=== PATIENT | male | born 1985 | race Hispanic/Latino ===

== ENCOUNTER 2023-01-11 10:58 | Emergency (ER) | payer SELFPAY ==
--- NOTE | ~2023-01-11 | XR_ITS ---
XR ankle LT min 3V 01/11/2023 11:39 INDICATION: Left ankle pain PROCEDURE: 4 views left ankle COMPARISON: No prior studies for comparison. FINDINGS: Fracture, dislocation or subluxation is not identified. Ankle mortise intact. The soft tiss ues appear within normal limits. No foreign bodies are identified. There is a degenerative calcaneal enthesophyte at the plantar surface. IMPRESSION: 1: NO ACUTE BONE OR JOINT ABNORMALITY IDENTIFIED. Reviewed, dictated and finalized at location A.
--- NOTE | ~2023-01-11 | XR_ITS ---
XR knee LT min 4V 01/11/2023 11:39 Indication: Left knee pain Procedure: 4 views left knee Comparison: No prior studies for comparison. Findings: No fracture, subluxation or dislocation. No significant joint effusion. No foreign bodies. No joint space narrowing. Impression: 1: No acute bone or joint abnormality. Reviewed, dictated and finalized at location A. Impression: 1: No acute bone or joint abnormality.
[2023-01-11 11:06] VITALS: BP 147/95; PULSE 74; RESP 18; TEMP 36.9; O2SAT 100
--- NOTE | 2023-01-11 11:25 | ED.LOWEXIN ---
HPI - Extremity Injury (Lower) General Chief Complaint: Extremity Injury, Lower Stated Complaint: left leg pain Time Seen by Provider: 01/11/23 11:06 History of Present Illness HPI Narrative: 37-year-old male reports for evaluation of his left knee and ankle after he fell while playing with his children yesterday. Patient reports with a family member who aids in translation and history. He was playing with the children, slipped on a wet floor, causing his left hip to abduct. He reports he inverted his left ankle, hit the medial aspect of his knee on the ground, and had valgus stress to L knee. Pt reports pain since, worsening with ambulation. He is able to ambulate with a limp. Denies hip pain, pain to tib/tib, foot pain, back pain, paresthesias, lower extremity weakness. Denies hitting his head or LOC. Related Data Allergies Allergy/AdvReac Type Severity Reaction Status Date / Time No Known Allergies Allergy Verified 01/11/23 11:28 Review of Systems Review of Systems: CONSTITUTIONAL: Denies fever, chills EYES: Denies visual changes, redness, or discharge. ENT: Denies rhinorrhea, congestion, sore throat, or otalgia. CARDIOVASCULAR: Denies chest pain, palpitations, or edema. RESPIRATORY: Denies cough or dyspnea. GASTROINTESTINAL: Denies abdominal pain, nausea, vomiting, or diarrhea. GENITOURINARY: Denies dysuria or hematuria. SKIN: Denies rash or itching. MUSCULOSKELETAL: See HPI NEUROLOGIC: Denies headache, numbness, dizziness, or weakness. PSYCHIATRIC: Denies anxiety or depression. Exam Narrative: GENERAL: Well-appearing, well-nourished, and in no acute distress. HEAD: Normocephalic, atraumatic. EYES: PERRLA and EOMI. NECK: Supple. No adenopathy or masses. No carotid bruits or JVD CHEST: Clear to auscultation. No respiratory distress. No wheezes rales or rhonchi HEART: Regular rate and rhythm. No murmur heard. Normal peripheral pulses. EXTREMITIES: LLE: Point tenderness to the medial aspect of the knee, overlying the medial condyle. Pain elicited with valgus stress. Negative anterior drawer, posterior drawer, no pain with varus stress. No overlying skin changes or edema. No patellar ballottement. Full extension. Flexion limited to 45 degrees. Point tenderness to lateral malleolus. Full range of motion of ankle, other than limited inversion. Dorsiflexion 4/5, plantarflexion 5/5. EHL strength 5/5. Sensation intact. Distal pulse 2+. No tenderness to hip, pelvis, tib-fib, toes, metacarpals, Achilles tendon, calcaneus. Negative high squeeze. Patient is ambulatory with a limp. SKIN: Warm, dry, no rash. NEURO: No focal deficits. Alert and oriented x3. PSYCH: Normal mood and affect. Course Vital Signs Vital signs: Vital Signs Temperature 98.4 F 01/11/23 11:06 Pulse Rate 74 01/11/23 11:06 Respiratory Rate 18 01/11/23 11:06 Blood Pressure 147/95 H 01/11/23 11:06 Pulse Oximetry 100 01/11/23 11:06 Oxygen Delivery Room Air 01/11/23 11:06 Temperature 98.3 F 01/11/23 12:50 Pulse Rate 72 01/11/23 12:50 Respiratory Rate 16 01/11/23 12:50 Blood Pressure 133/88 01/11/23 12:50 Pulse Oximetry 100 01/11/23 12:50 Oxygen Delivery Room Air 01/11/23 11:26 MDM - Extremity Injury (Lower) MDM Narrative Medical decision making narrative: 37-year-old male reports for evaluation of left knee and ankle pain after he slipped today, causing increased valgus stress to his knee, and inversion of his left ankle. Knee exam reveals point tenderness to the medial aspect of the knee overlying the medial femoral condyle with increased pain on valgus stress. Ankle exam reveals point tenderness over the lateral malleolus. Patient is neurovascularly intact. X-rays reveal no acute fracture or joint misalignment. Patient received Flexeril and ibuprofen with improvement in pain. I discussed imaging findings with the patient and my concern for MCL pathology. Patient placed in Livan wrap's for the knee and ankle, an
[2023-01-11 11:26] VITALS: BP 150/101; PULSE 89; RESP 16; TEMP 36.9; O2SAT 98
[2023-01-11] MEDS: CYCLOBENZAPRINE HCL 10 MG TABLET PO (11:43)
[2023-01-11] MEDS: IBUPROFEN 600 MG TABLET PO (11:43)
[2023-01-11 12:50] VITALS: BP 133/88; PULSE 72; RESP 16; TEMP 36.8; O2SAT 100
== END 2023-01-11 12:58 | disposition home or self-care (01) ==
PROVIDERS: Emergency Provider Physician Assistant
DX: S83.412A Sprain of medial collateral ligament of left knee, initial encounter (principal); S93.492A Sprain of other ligament of left ankle, initial encounter; W01.0XXA Fall on same level from slipping, tripping and stumbling without subsequent striking against object, initial encounter
CPT/HCPCS: 73564; 73610; 99284; A9270

== ENCOUNTER 2023-08-03 10:22 | Emergency (ER) | payer SELFPAY ==
--- NOTE | ~2023-08-03 | US_ITS ---
EXAMINATION: US scrotum doppler DATE: 08/03/2023 12:11 INDICATION: Right testicular pain. TECHNIQUE: Grayscale and Doppler ultrasound images of the testes were obtained. COMPARISON: None. FINDINGS: The right testis measures 3.9 x 1.9 x 2.8 cm. The left testis measures 4.3 x 2.1 x 2.4 cm. There is normal vascular flow to both testes. The right epididymis demonstrates 5 mm 6 mm cysts. Ther e is increased vascular flow in right epididymis, consistent with epididymitis. The left epididymis i s normal with normal vascular flow. There is a small right hydrocele. IMPRESSION: 1. Right-sided epididymitis. 2. Small right hydrocele. Reviewed, dictated and finalized at location A.
[2023-08-03 10:31] VITALS: PULSE 81; RESP 17; TEMP 36.9; O2SAT 100
[2023-08-03 11:42] LABS: Appearance Urine Clear (Clear); Bilirubin Urine Negative (Negative); Blood Urine Trace-intact (Negative); Color Urine Yellow (Yellow); Glucose Urine UA Negative (Negative); Ketones Urine Negative (Negative); Leukocyte Esterase Ur Negative LEU/UL (Negative); Nitrate Urine Negative (Negative); Protein Urine Negative (Negative); Specific Grav Ur 1.025 (1.001-1.035); Urobilinogen Urine 0.2 mg/dL (<2.0); pH Urine 5.5 (5.0-9.0)
[2023-08-03 11:47] LABS: Bacteria Urine None Seen /hpf; Non Pathogenic Casts 0-2; RBC Urine 0-2 /hpf (0-2); Squamous Epithelial Cell Urine None seen /hpf (Few); WBC Urine 21-50 /hpf
[2023-08-03 11:50] LABS: Add Urine Microscopic? YES
[2023-08-03 13:14] LABS: Chlamydia trachomatis DETECTED (NOT DETECTE); Neisseria gonorrhoeae PCR NOT DETECTED (NOT DETECTE)
--- NOTE | 2023-08-03 13:50 | ED.GENADULT ---
HPI - General Adult General Chief complaint: Abdominal Pain Stated complaint: hernia pain Time Seen by Provider: 08/03/23 10:34 History of Present Illness HPI narrative: Patient is a 37-year-old male who presents ER with pain to the right testicle. Worsening over the last couple of days. He has noticed increased swelling. Endorses frequency urgency and dysuria. No urethral discharge. Denies possible STD exposure. Related Data Allergies Allergy/AdvReac Type Severity Reaction Status Date / Time No Known Allergies Allergy Verified 08/03/23 12:19 Review of Systems Constitutional: Constitutional: Denies chills and Denies fever(s) Gastrointestinal: Gastrointestinal: Denies abdominal pain, Denies nausea and Denies vomiting Genitourinary: Genitourinary: Reports dysuria, Denies penile discharge, Reports testicular pain and Reports urinary frequency Exam Narrative: GENERAL: Well-appearing, well-nourished, and in no acute distress. HEAD: Normocephalic, atraumatic. : Enlarged right testicle with tenderness over the epididymis. Normal penile shaft and no urethral discharge. Nontender left testicle. EXTREMITIES: Normal range of motion. No edema. SKIN: Warm, dry, no rash. NEURO: Alert and oriented x3. PSYCH: Normal mood and affect. Course Course Emergency Course: Patient resting comfortably. Informed of results and treatment plan and verbalized understanding. Encouraged safe sex practices and contacting his intimate partner. Vital Signs Vital signs: Vital Signs Temperature 98.4 F 08/03/23 10:31 Pulse Rate 81 08/03/23 10:31 Respiratory Rate 17 08/03/23 10:31 Pulse Oximetry 100 08/03/23 10:31 Oxygen Delivery Room Air 08/03/23 10:31 Temperature 98.4 F 08/03/23 10:31 Pulse Rate 81 08/03/23 10:31 Respiratory Rate 17 08/03/23 10:31 Pulse Oximetry 100 08/03/23 10:31 Oxygen Delivery Room Air 08/03/23 10:31 Medical Decision Making Vital Signs Vital Signs: Vital Signs Temperature 98.4 F 08/03/23 10:31 Pulse Rate 81 08/03/23 10:31 Respiratory Rate 17 08/03/23 10:31 Pulse Oximetry 100 08/03/23 10:31 Oxygen Delivery Room Air 08/03/23 10:31 Temperature 98.4 F 08/03/23 10:31 Pulse Rate 81 08/03/23 10:31 Respiratory Rate 17 08/03/23 10:31 Pulse Oximetry 100 08/03/23 10:31 Oxygen Delivery Room Air 08/03/23 10:31 Lab Data Labs: Lab Results 08/03/23 08/03/23 Range/Units 11:31 11:34 Urine Color Yellow (Yellow) Urine Appearance Clear (Clear) Urine pH 5.5 (5.0-9.0) Ur Specific [place] 1.025 (1.001-1.035) Urine Protein Negative (Negative) mg/dL Urine Glucose (UA) Negative (Negative) mg/dL Urine Ketones Negative (Negative) mg/dL Ur Blood (Man) Trace-intact (Negative) Urine Nitrate Negative (Negative) Urine Bilirubin Negative (Negative) Urine Urobilinogen 0.2 (<2.0) mg/dL Leukocyte Esterase Rfl Negative (Negative) OLGA/UL Urine RBC 0-2 (0-2) /hpf Urine WBC 21-50 H /hpf Ur Squamous Epith Cells None seen (Few) /hpf Urine Bacteria None seen /hpf Urine Casts 0-2 C. trachomatis (PCR) Detected A (NOT DETECTE) N. gonorrhoeae (PCR) Not detected (NOT DETECTE) Discharge Plan Discharge Clinical Impression: Acute epididymitis Patient Disposition: Home, Self-Care Condition: Stable Instructions: Antibiotic Form, Chlamydia (ED) Additional Instructions: Return the ER if you have fever over 100.4 ?F, you cannot keep down food or water, you lose consciousness, you have additional concerns. You must take your full course of antibiotic to treat your infection. Abstain from having sexual intercourse. Make sure your partner is also treated for sexually transmitted infection. Prescriptions: New doxycycline monohydrate 100 mg capsule 100 mg PO BID Qty: 20 0RF naproxen 375 mg tablet 375 mg PO BID Qty: 14 0RF No Action cyclobenz
== END 2023-08-03 14:07 | disposition home or self-care (01) ==
PROVIDERS: Emergency Provider Emergency Medicine
DX: N45.1 Epididymitis (principal)
CPT/HCPCS: 76870; 81001; 87086; 87491; 87591; 93976; 99284